=== PATIENT | male | born 1975 | race African-American/Black ===

== ENCOUNTER 2021-03-20 00:40 | Emergency (ER) | payer MEDICAID ==
[~2021-03-20] VITALS: Ht 185.4 cm; Wt 100.0 kg
[2021-03-20] MEDS ORDERED: ONDANSETRON HCL 4MG/2ML INJ IV STA (01:55)
[2021-03-20] MEDS ORDERED: FAMOTIDINE 20MG/2ML VIAL IV STA (01:55)
[2021-03-20] MEDS ORDERED: MAGNESIUM/ALUMINUM HYDROXIDE/SIMETHICONE 30ML UDC PO STA (01:55)
[2021-03-20] MEDS ORDERED: SODIUM CHLORIDE 0.9% 1,000 ML IV ONE (02:00)
[2021-03-20 02:27] LABS: BASOPHILS % 0.5 % (0.0-2.0); HEMATOCRIT. 50.1 % (42.0-52.0); HEMOGLOBIN. 17.2 g/dL (14.0-18.0); LYMPHOCYTES % 26.1 % (20.0-50.0); MEAN CORPUSCULAR HEMOGLOBIN 32.5 pg (28.0-32.0); MEAN CORPUSCULAR VOLUME 94.6 fL (80.0-94.0); MEAN PLATELET VOLUME 8.7 fl (7.4-10.4); MONOCYTES % 8.1 % (2.0-8.0); NEUTROPHILS % 65.3 % (40.0-76.0); PLATELET 176 x1000/uL (130-400); RED CELL DISTRIBUTION WIDTH 13.8 % (11.6-14.6)
[2021-03-20 02:34] LABS: CHLORIDE 100 mEq/L (98-107)
[2021-03-20 03:32] LABS: PROTHROMBIN TIME 10.5 sec (9.6-11.0)
[2021-03-20] MEDS ORDERED: AMOX-494 MT (04:26)
[2021-03-20] MEDS ORDERED: FAMO-135 MT (04:26)
[2021-03-20 04:42] LABS: CLARITY URINE CLEAR (CLEAR); COLOR URINE DARK YELLOW (YELLOW); KETONES URINE TRACE (NEGATIVE); LEUKOCYTE ESTERASE URINE NEGATIVE (NEGATIVE); NITRITE URINE NEGATIVE (NEGATIVE); OCCULT BLOOD URINE TRACE (NEGATIVE); PH URINE 6.5 (4.5-8.0); PROTEIN URINE 3+ (NEGATIVE); SPECIFIC GRAVITY URINE 1.034 (1.005-1.030)
[2021-03-20 04:59] VITALS: BP 148/87
== END 2021-03-20 05:03 | disposition home or self-care (01) ==
LOC: ER 00:40
DX: J18.9 Pneumonia, unspecified organism (principal); R10.12 Left upper quadrant pain; I10 Essential (primary) hypertension; K21.9 Gastro-esophageal reflux disease without esophagitis; F17.210 Nicotine dependence, cigarettes, uncomplicated; F12.10 Cannabis abuse, uncomplicated
CPT/HCPCS: 36415; 71045; 76705; 80053; 81003; 83690; 85025; 85610; 93005; 96361; 96374; 96375; 99285; J2405; J3490; J7030; Z7610